=== PATIENT | female | born 2000 ===

== ENCOUNTER 2024-09-28 06:11 | Day surgery (SDC) | payer OTHER, SELFPAY | END 2024-09-28 11:04 | disposition home or self-care (01) | LOC: GI 06:11 | PROVIDERS: ATTENDING PHYSICIAN Internal Medicine | DX: K52.9 Noninfective gastroenteritis and colitis, unspecified (principal); K92.1 Melena; K64.8 Other hemorrhoids; K62.89 Other specified diseases of anus and rectum; K63.89 Other specified diseases of intestine | CPT/HCPCS: 45380; 88305 ==